=== PATIENT | female | born 1965 | race Asian ===

== ENCOUNTER 2023-02-12 16:17 | Emergency (ER) | payer OTHER ==
--- NOTE | 2023-02-12 16:31 | ED Physician Documentation ---
PD HPI HEAD INJURY - Stated complaint Stated Complaint: HEAD LAC - History obtained from History obtained from: Patient - History of Present Illness Mechanism of head injury: Fell (she was walking out onto beach with dress sandals and slipped on driftwood, falling and striking face/sunglasses leading too lac right lateral periorbital rim. Also lac left anterior knee from the fall as well.) Where head injury occurred: Other (beach) Location of injury: Right Associated symptoms: Nausea / vomiting. No: LOC, AMS Review of Systems Eyes: denies: Loss of vision, Decreased vision, Photophobia Neurologic: denies: Focal weakness, Numbness, Altered mental status, Headache PD PAST MEDICAL HISTORY - Past Medical History Cardiovascular: None Neuro: None - Allergies Allergies/Adverse Reactions: Allergies Allergy/AdvReac Type Severity Reaction Status Date / Time No Known Drug Allergies Allergy Verified 02/12/23 16:37 PD ED PE NORMAL - Vitals Vital signs reviewed: Yes - General General: Alert and oriented X 3, No acute distress, Well developed/nourished - HEENT HEENT: PERRL, EOMI, Other (right lateral orgital area with vertical lac to fatty tissue with some mild oozing ongoing. to fatty tissue. No bony tenderness per se. ) - Neck Neck: Supple, no meningeal sign, No bony TTP - Derm Derm: Normal color, Warm and dry - Extremities Extremities: Other (left anterior knee with 1 cm laceration with mild bleeding. It open well with knee flexion though. No FB felt. ) - Neuro Neuro: Alert and oriented X 3, No motor deficit, No sensory deficit, Normal speech Results - Vitals Vitals: Oxygen O2 Source Room air Procedures - Laceration (location) left knee Length in cm: 1 Wound type: Linear, Into subcut fat, Clean Neurovascular status: Sensory intact, Motor intact Anesthesia: Lidocaine 1% Wound preparation: Irrigated copiously NS Skin layer closure: Nylon (4), Interrupted, Size #-0 - enter number (4), Sutures - enter # (4) Other: Patient tolerated well, No complications, Neurovascular intact (4) right periorbital lateral Length in cm: 1.4 Wound type: Irregular, Into subcut fat, Clean Anesthesia: Lidocaine 1% Wound preparation: Irrigated copiously NS, Wound explored, To the base Skin layer closure: Nylon, Running, Size #-0 - enter number (6), Sutures - enter # (5) Other: Patient tolerated well, No complications, Neurovascular intact, Tetanus UTD PD Medical Decision Making - ED course Complexity details: considered differential (slipped and fell on beach wearing sandals. Lac right periorbital area from ege of glasses rim. Also lac of left knee from [place]. No FB suspected by pt. ), d/w patient Departure - Departure Disposition: 01 Home, Self Care Clinical Impression: Fall from slip, trip, or stumble Qualifiers: Encounter type: initial encounter Qualified Code(s): W01.0XXA - Fall on same level from slipping, tripping and stumbling without subsequent striking against object, initial encounter Laceration of periorbital area Qualifiers: Encounter type: initial encounter Qualified Code(s): S01.81XA - Laceration without foreign body of other part of head, initial encounter Laceration of knee Qualifiers: Encounter type: initial encounter Laterality: left Qualified Code(s): S81.012A - Laceration without foreign body, left knee, initial encounter Condition: Stable Record reviewed to determine appropriate education?: Yes Instructions: ED Laceration All Comments: It is okay to wash and shower. Clean off the wound twice a day with soap and water, or peroxide and water. Apply some antibiotic ointment to it to keep it moist. Also to watch for signs of infection such as purulence, redness or increa sing pain. Return to your primary care or the ER at the specified time for suture removal. Suture removal 8 to 10 days. Tylenol if needed for pains. Discharge Date/Time: 02/12/23 17:12
[2023-02-12 17:27] VITALS: BP 125/88
== END 2023-02-12 17:12 | disposition home or self-care (01) ==
LOC: ED 16:17
DX: S01.81XA Laceration without foreign body of other part of head, initial encounter (principal); S81.012A Laceration without foreign body, left knee, initial encounter; W01.0XXA Fall on same level from slipping, tripping and stumbling without subsequent striking against object, initial encounter
CPT/HCPCS: 12001; 99282